=== PATIENT | female | born 1935 | race Caucasian/White ===

== ENCOUNTER 2022-01-14 20:42 | Emergency (ER) | payer MEDICARE, OTHER, SELFPAY ==
[2022-01-14] VITALS (8 sets, daily range): BP systolic 121–146; BP diastolic 58–69; PULSE 61–67; RESP 12–25; TEMP 36.1; O2SAT 90–100; BMI 24.7
--- NOTE | 2022-01-14 21:14 | PC.NURSE ---
Spoke to family that is present, patient had been without home medications for 36 hours. Symptoms started this AM with confusion, weakness, nausea, and dizziness. Patient took dose of diltiazem at noon and again at bedtime. Patient was also without venlafaxine for a day and a half, also taken at noon.
--- NOTE | 2022-01-14 21:14 | ED.GENADULT ---
HPI - General Adult General Chief complaint: Weakness Stated complaint: weakness Time Seen by Provider: 01/14/22 20:59 Source: patient Mode of arrival: EMS Limitations: no limitations History of Present Illness HPI narrative: 86-year-old female. She has a history of what sounds like paroxysmal atrial fibrillation. Is on diltiazem. She is visiting the area. Prior to coming to visit the local area she stated that she started to not feel very well. Has had some nausea. No vomiting. No fevers. No chest pain. No palpitations. No shortness of breath. Just generally did not feel well. When she left to come to the area she forgot her medications at home. On she did not take any of her medication. On Monday she received her medications in the male was someone had sent them to her. She did take her diltiazem at noon. She continued to not feel well so she decided to take an extra dose of her diltiazem at 1800 hours in the afternoon. There was concern about this extra dose of medication how she was feeling so she was brought to the emergency department for further evaluation Review of Systems Constitutional Constitutional: Reports fatigue, Reports lethargy and Reports malaise Cardiovascular Cardiovascular: Denies chest pain, Denies rapid heart rate, Denies lightheadedness and Denies dyspnea Respiratory Respiratory: Denies cough and Denies dyspnea Gastrointestinal Gastrointestinal: Denies abdominal pain, Reports nausea and Reports vomiting Integumentary/Breasts Skin/Breast: Reports system reviewed and no additional complaints, except as documented Neurologic Neurologic: Reports system reviewed and no additional complaints, except as documented Endocrine Endocrine: Reports fatigue Hematologic/Lymphatic On Anticoagulants: No Patient History Social History Smoking Status: Never smoker Smoking Status: Never smoker Substance Use Type: does not use Exam Initial Vital Signs Initial Vital Signs: Vital Signs Pulse Rate 61 01/14/22 20:56 Pulse Oximetry 100 01/14/22 20:56 HENMT Head: normal to inspection Eyes General: Yes appearance normal, both eyes and all related structures Resp Effort & Inspection: normal respiratory effort Auscultation: clear to auscultation bilaterally Cardio Rate: regular rate Rhythm: regular rhythm GI Inspection: normal to inspection Palpation: soft and No tender Skin General: no rashes or lesions noted Neuro General: patient alert, patient awake and moves all extremities Extrem General: normal to inspection and capillary refill normal Psych Appearance: grossly normal and well kempt Scores GCS Krysta coma scale eye opening: Spontaneous Krysta coma scale verbal response: Orientated [place] coma scale motor response: Obey commands Krysta coma scale total score: 15 Course Orders Ordered: ED Orders 01/14/22 20:50 Acetaminophen Stat Complete Blood Count AUTO DIFF Stat Comprehensive Metabolic Panel Stat Ethanol (ETOH) Stat Lactate (Lactic Acid) Stat Lipase Stat Troponin & CK Cardiac Panel Stat 01/14/22 21:05 EKG-12 Lead Stat Discontinued Medications Sodium Chloride (Normal Saline 0.9%) 1,000 mls @ 125 mls/hr IV CONT KEYSHA Last Infusion: 01/15/22 00:09 Dose: 0 mls/hr Documented by: Infusion: 01/14/22 23:48 Dose: 0 mls/hr Documented by: Admin: 01/14/22 21:21 Dose: 125 mls/hr Documented by: AMANDO Vital Signs Vital signs: Vital Signs - 8 hr 01/14/22 20:56 01/14/22 21:00 01/14/22 21:30 Temperature 96.9 F L Pulse Rate 61 61 62 Respiratory Rate 16 15 Blood Pressure 138/66 145/69 H Pulse Oximetry 100 100 92 01/14/22 22:00 01/14/22 22:30 01/14/22 23:00 Temperature Pulse Rate 65 67 63 Respiratory Rate 22 19 25 H Blood Pressure 144/64 H 145/65 H Pulse Oximetry 90 L 92 92 01/14/22 23:01 01/14/22 23:30 Temperature Pulse Rate 63 65 Respiratory Rate 25 H 16 Blood Pressure 121/58 L 122/60 Pulse Oximetry 92 93 Medical Decision Making Lab Data Lab results reviewed: Yes I reviewed the patient's lab results. Result diagrams: 01/14/22 20:50 01/14/22 20:50 Labs: Lab Results 01/14/22 01/14/22 01/14/22 Range/Units 20:50 20:50 20:50 WBC 8.4 (4.5-11.0) X10^3/uL RBC 3.88 L (4.0-5.2) X10^6/uL Hgb 11.2 L (12.0-16.0) g/dL Hct 33.1 L (36-46) % MCV 85.3 (80-100) fL MCH 28.9 (26-34) PG MCHC 33.9 (30-36) % RDW 15.4 H (11.6-14.8) % Plt Count 281 (150-400) X10^3/uL Neut % (Auto) 44.4 L (50-75) % Lymph % (Auto) 42.4 H (25-40) % Sargent % (Auto) 11.0 (3-14) % Eos % (Auto) 1.8 L (2-4) % Baso % (Auto) 0.4 (0-2) % Neut # (Auto) 3700 (2647-4877) /uL Lymph # (Auto) 3500 (6537-5985) /uL Sargent # (Auto) 900 (0-900) /uL Eos # (Auto) 200 (0-450) /uL Baso # (Auto) 0 (0-100) /uL Sodium 132 L (137-145) mmol/L Potassium 4.3 (3.4-5.1) mmol/L Chloride 100 (98-107) mmol/L Carbon Dioxide 31 (22-32) mmol/L BUN 18 H (7-17) mg/dL Creatinine 0.79 (0.52-1.04) mg/dL Estimated GFR > 60 (>60) mL/min BUN/Creatinine Ratio 22.8 H (6-22) Glucose 134 H (80-110) mg/dL Lactate 1.6 (0.7-2.1) mmol/L Calcium 9.2 (8.4-10.2) mg/dL Total Bilirubin 0.3 (0.2-1.3) mg/dL AST 25 (14-36) IU/L ALT 18 (<35) IU/L Alkaline Phosphatase 107 (38-126) U/L Total Creatine Kinase (30-135) U/L CK-MB (CK-2) CK-MB (CK-2) Rel Index Troponin I (0.01-0.034) ng/mL Total Protein 6.9 (6.3-8.2) g/dL Albumin 3.7 (3.5-5.0) g/dL Globulin 3.2 (1.7-4.1) g/dL Albumin/Globulin Ratio 1.2 (1.0-2.8) Lipase 187 (23-300) U/L Acetaminophen < 10 (10-30) ug/mL Ethyl Alcohol < 10 ( - 10) mg/dL 01/14/22 Range/Units 20:50 WBC (4.5-11.0) X10^3/uL RBC (4.0-5.2) X10^6/uL Hgb (12.0-16.0) g/dL Hct (36-46) % MCV (80-100) fL MCH (26-34) PG MCHC (30-36) % RDW (11.6-14.8) % Plt Count (150-400) X10^3/uL Neut % (Auto) (50-75) % Lymph % (Auto) (25-40) % Sargent % (Auto) (3-14) % Eos % (Auto) (2-4) % Baso % (Auto) (0-2) % Neut # (Auto) (5358-3525) /uL Lymph # (Auto) (3482-0201) /uL Sargent # (Auto) (0-900) /uL Eos # (Auto) (0-450) /uL Baso # (Auto) (0-100) /uL Sodium (137-145) mmol/L Potassium (3.4-5.1) mmol/L Chloride (98-107) mmol/L Carbon Dioxide (22-32) mmol/L BUN (7-17) mg/dL Creatinine (0.52-1.04) mg/dL Estimated GFR (>60) mL/min BUN/Creatinine Ratio (6-22) Glucose (80-110) mg/dL Lactate (0.7-2.1) mmol/L Calcium (8.4-10.2) mg/dL Total Bilirubin (0.2-1.3) mg/dL AST (14-36) IU/L ALT (<35) IU/L Alkaline Phosphatase (38-126) U/L Total Creatine Kinase 34 (30-135) U/L CK-MB (CK-2) TNP CK-MB (CK-2) Rel Index TNP Troponin I < 0.012 (0.01-0.034) ng/mL Total Protein (6.3-8.2) g/dL Albumin (3.5-5.0) g/dL Globulin (1.7-4.1) g/dL Albumin/Globulin Ratio (1.0-2.8) Lipase (23-300) U/L Acetaminophen (10-30) ug/mL Ethyl Alcohol ( - 10) mg/dL ECG Data Attestation: I personally reviewed and interpreted this ECG as follows: Interpretation: Sinus rhythm Ventricular rate is 62 Normal axis Normal QRS Normal QTC No ST T wave changes MDM Narrative Medical decision making narrative: The fatigue and malaise that the patient describes has actually been going on prior to her taking the extra dose of the diltiazem. I did contact poison Control and they stated that given the dose that she took there is no specific observation. Her treatment time needed at this dose. Patient's labs are unremarkable. Physical exam is unremarkable. Low suspicion for ACS. Low suspicion for TIA or CVA. Patient is afebrile. Pharmacist at poison Control recommended that she wait at least 24 hours before taking another dose of the medication. There is no indication for antibiotics. Will have her continue her medications as directed to the emergency department for any new or worsening symptoms. Discharge Plan Departure Patient Disposition: Home Clinical Impression: Pre-syncope Activity Restrictions/Additional Instructions: I do recommend that you continue to take all of your medications as directed. The pharmacist that I spoke with recommended that you wait a full 24 hours before taking another dose of your diltiazem. Be sure to increase your fluid intake. Return to the emergency department for any new or worsening symptoms.
[2022-01-14 21:17] LABS: Add Manual Diff / Slide Review NO; Basophils Absolute Auto 0 /uL (0-100); Basophils Percent Auto 0.4 % (0-2); Eosinophils Absolute Auto 200 /uL (0-450); Eosinophils Percent Auto 1.8 % (2-4); Hematocrit 33.1 % (36-46); Hemoglobin 11.2 g/dL (12.0-16.0); Lymphocytes Absolute Auto 3500 /uL (1100-4500); Lymphocytes Percent Auto 42.4 % (25-40); Mean Corpuscular HGB Conc 33.9 % (30-36); Mean Corpuscular Hemoglobin 28.9 PG (26-34); Mean Corpuscular Volume 85.3 fL (80-100); Monocytes Absolute Auto 900 /uL (0-900); Neutrophils Absolute Auto 3700 /uL (1500-7000); Neutrophils Percent Auto 44.4 % (50-75); Platelet Count 281 X10^3/uL (150-400); Red Blood Cell Count 3.88 X10^6/uL (4.0-5.2); Red Cell Distribution Width 15.4 % (11.6-14.8); White Blood Cell Count 8.4 X10^3/uL (4.5-11.0)
[2022-01-14] MEDS: SODIUM CHLORIDE 0.9% 1,000 ML 125 ML IV (21:21)
[2022-01-14 21:22] LABS: Creatine Kinase 34 U/L (30-135); Lactate (Lactic Acid) 1.6 mmol/L (0.7-2.1)
[2022-01-14 21:24] LABS: Acetaminophen < 10 ug/mL (10-30); Alanine Aminotransferase 18 IU/L (<35); Albumin 3.7 g/dL (3.5-5.0); Albumin Globulin Ratio 1.2 (1.0-2.8); Alkaline Phosphatase 107 U/L (38-126); Aspartate Aminotransferase 25 IU/L (14-36); BUN Creatinine Ratio 22.8 (6-22); Bilirubin Total 0.3 mg/dL (0.2-1.3); Blood Urea Nitrogen 18 mg/dL (7-17); Calcium 9.2 mg/dL (8.4-10.2); Carbon Dioxide 31 mmol/L (22-32); Chloride 100 mmol/L (98-107); Estimated Glomerular Filt Rate > 60 mL/min (>60); Ethanol (ETOH) < 10 mg/dL; Globulin 3.2 g/dL (1.7-4.1); Glucose 134 mg/dL (80-110); HEMOLYSIS < 15 (0-50); Lipase 187 U/L (23-300); Potassium 4.3 mmol/L (3.4-5.1); Sodium 132 mmol/L (137-145); Total Protein 6.9 g/dL (6.3-8.2)
[2022-01-14 21:34] LABS: Troponin I < 0.012 ng/mL (0.01-0.034)
== END 2022-01-15 00:23 | disposition home or self-care (01) ==
PROVIDERS: Emergency Provider Emergency Medicine
DX: R55 Syncope and collapse (principal); R53.83 Other fatigue; R07.9 Chest pain, unspecified
CPT/HCPCS: 36415; 80053; 80320; 80329; 82550; 83605; 83690; 84484; 85025; 93005; 93010; 99283; 99284; G0480